=== PATIENT | male | born 1995 | race Caucasian/White ===

== ENCOUNTER 2016-08-19 19:08 | Emergency (ER) | payer BC ==
[~2016-08-19] VITALS: Ht 182.9 cm; Wt 81.8 kg
[2016-08-19 19:14] VITALS: BP 117/76; TEMP 100.4
[2016-08-19] MEDS ORDERED: AMOXICILLIN 8751 TAB PO (19:48)
[2016-08-19 20:02] VITALS: PULSE 101
== END 2016-08-19 20:03 | disposition home or self-care (01) ==
LOC: COL.ER 19:08 → EDBD 19:22 → COL.ER 20:03
DX: J32.9 Chronic sinusitis, unspecified (principal)